=== PATIENT | female | born 1985 | race Caucasian/White ===

== ENCOUNTER 2020-04-14 16:28 | Inpatient (IN) | payer OTHER, MEDICAID ==
[~2020-04-14] VITALS: Ht 167.6 cm; Wt 65.8 kg
[2020-04-14 17:27] LABS: BASOPHILS % (AUTO) 1.1 % (0.0-2.0); EOSINOPHILS % (AUTO) 0.3 % (1.0-6.0); HEMATOCRIT 37.1 % (36-46); HEMOGLOBIN 12.7 g/dL (12.0-16.0); LYMPHOCYTES # (AUTO) 2.6 K/uL (1.0-4.8); LYMPHOCYTES % (AUTO) 20.1 % (22.0-44.0); MEAN CORPUSCULAR HEMOGLOBIN 31.5 pg (26.0-34.0); MEAN CORPUSCULAR HGB CONC 34.3 G/dL (31.0-37.0); MEAN CORPUSCULAR VOLUME 92 fL (80-100); MONOCYTES # (AUTO) 0.6 K/uL (0.1-1.0); MONOCYTES % (AUTO) 4.4 % (2.0-9.0); NEUTROPHILS # (AUTO) 9.5 K/uL (1.8-7.7); NEUTROPHILS % (AUTO) 74.1 % (40.0-70.0); PLATELET COUNT (AUTO) 447 K/uL (150-450); RED BLOOD CELL COUNT(AUTO) 4.05 MIL/uL (4.00-5.20); RED CELL DISTRIBUTION WIDTH 15.6 % (11.5-14.5)
[2020-04-14 17:40] LABS: ANION GAP 13 mmol/L (8-16); CALCIUM, TOTAL 8.6 mg/dL (8.8-10.5); CARBON DIOXIDE 23 mmol/L (22-29); CHLORIDE 102 mmol/L (98-107); CREATININE 0.95 mg/dL (0.60-1.30); GLOMERULAR FILTR. RATE CALC > 60 mL/min (>60); GLUCOSE,RANDOM 106 mg/dL (70-110); POTASSIUM 3.8 mmol/L (3.5-5.1); SODIUM SERUM 138 mmol/L (136-145); UREA NITROGEN, BLOOD 18 mg/dL (7-18)
[2020-04-14 17:52] LABS: ALANINE AMINOTRANSFERASE 33 U/L (12-78); ALBUMIN 3.9 g/dL (3.4-5.0); ALKALINE PHOSPHATASE 53 U/L (46-116); ASPARTATE AMINOTRANSFERASE 34 U/L (15-37); BILIRUBIN,TOTAL 0.2 mg/dL (0.1-1.0); HCG,QUANTITATIVE < 1 mIU/mL (0-6); TOTAL PROTEIN, SERUM 7.6 g/dL (6.4-8.2)
[2020-04-14] MEDS ORDERED: HYDR50CA9 PO (18:04)
[2020-04-14] MEDS ORDERED: NAPR-1025 PO (18:04)
[2020-04-14] MEDS ORDERED: FOLI-130 PO (18:04)
[2020-04-14] MEDS ORDERED: PRAZ1 PO (18:04)
[2020-04-14] MEDS ORDERED: GABA-1181 PO (18:04)
[2020-04-14 18:44] LABS: AMPHET/METH SCREEN,URINE NEGATIVE (NEGATIVE); BARBITURATE SCREEN, URINE NEGATIVE (NEGATIVE); BENZODIAZEPINES SCREEN,URINE NEGATIVE (NEGATIVE); CANNABINOID SCREEN,URINE NEGATIVE (NEGATIVE); COCAINE SCREEN,URINE NEGATIVE (NEGATIVE); METHADONE SCREEN, URINE NEGATIVE (NEGATIVE); OPIATE SCREEN,URINE NEGATIVE (NEGATIVE); PHENCYCLIDINE SCREEN,URINE NEGATIVE (NEGATIVE)
[2020-04-14] MEDS ORDERED: LORazepam 1 MG TABLET PO ONE (20:15)
[2020-04-14] MEDS ORDERED: ONDANSETRON HCL 4 MG TABLET PO ONE (23:45)
[2020-04-15 01:05] VITALS: BP 139/88
[2020-04-15] MEDS: ZOLPIDEM TARTRATE 10 MG TABLET PO PRN ×2 (01:25→20:09)
[2020-04-15] MEDS: LORazepam 2 MG TABLET PO PRN ×2 (01:25→08:31)
[2020-04-15 07:41] LABS: CHOL/HDL RATIO 2.7 (3.9-5.7)
[2020-04-15] MEDS: HALOPERIDOL 5 MG TABLET PO PRN (08:31)
[2020-04-15 08:58] VITALS: BP 102/62
[2020-04-15] MEDS ORDERED: PETROLATUM,WHITE 28 GM JELLY TP PRN (09:15)
[2020-04-15] MEDS ORDERED: MAG HYDROX/AL HYDROX/SIMETH ES 30 ML SUSPENSION UDCUP PO PRN (09:15)
[2020-04-15] MEDS ORDERED: DOCUSATE SODIUM 100 MG CAPSULE PO PRN (09:15)
[2020-04-15] MEDS ORDERED: NICOTINE 14 MG/24 HOUR PATCH TD PRN (09:15)
[2020-04-15] MEDS ORDERED: CloNIDine HCL 0.1 MG TABLET PO PRN (09:15)
[2020-04-15] MEDS ORDERED: ALBUTEROL SULFATE HFA 90 MCG/PUFF 8 GM INHALER IH PRN (09:15)
[2020-04-15] MEDS ORDERED: LOPERAMIDE HCL 2 MG CAPSULE PO PRN (09:15)
[2020-04-15] MEDS ORDERED: MAGNESIUM HYDROXIDE SUSPENSION 30 ML UDCUP PO PRN (09:15)
[2020-04-15] MEDS ORDERED: GuaiFENesin/D-METHORPHAN [SUGAR-FREE] 200-20MG/10 ML SYRUP UDCUP PO PRN (09:15)
[2020-04-15] MEDS ORDERED: ACETAMINOPHEN 325 MG TABLET PO PRN (09:15)
[2020-04-15] MEDS ORDERED: IBUPROFEN 400 MG TABLET PO PRN (09:15)
[2020-04-15] MEDS ORDERED: ONDANSETRON HCL 4 MG TABLET PO PRN (09:15)
[2020-04-15 16:00] VITALS: BP 130/87
[2020-04-15] MEDS: GABAPENTIN 300 MG CAPSULE PO SCH (16:17)
[2020-04-15] MEDS: TraZODone HCL 50 MG TABLET PO SCH (20:07)
[2020-04-15] MEDS: PRAZOSIN HCL 1 MG CAPSULE PO SCH (20:07)
[2020-04-16 00:01] VITALS: BP 120/75
[2020-04-16] MEDS: LORazepam 2 MG TABLET PO PRN ×4 (00:06→15:54)
[2020-04-16 08:00] VITALS: BP 144/95
[2020-04-16] MEDS: FOLIC ACID 1 MG TABLET PO SCH (09:18)
[2020-04-16] MEDS: GABAPENTIN 300 MG CAPSULE PO SCH ×3 (09:19→16:18)
[2020-04-16] MEDS: HydrOXYzine PAMOATE 50 MG CAPSULE PO SCH (09:19)
[2020-04-16] MEDS: HALOPERIDOL 5 MG TABLET PO PRN (15:54)
[2020-04-16 16:27] VITALS: BP 147/90
[2020-04-16] MEDS: TraZODone HCL 50 MG TABLET PO SCH (20:24)
[2020-04-16] MEDS: PRAZOSIN HCL 1 MG CAPSULE PO SCH (20:24)
[2020-04-16] MEDS: ZOLPIDEM TARTRATE 10 MG TABLET PO PRN (20:25)
[2020-04-17 00:15] VITALS: BP 100/60
[2020-04-17] MEDS: LORazepam 2 MG TABLET PO PRN (00:22)
[2020-04-17] MEDS: HALOPERIDOL 5 MG TABLET PO PRN (02:15)
[2020-04-17 04:13] VITALS: BP 111/79
[2020-04-17 08:00] VITALS: BP 112/68
[2020-04-17] MEDS: HydrOXYzine PAMOATE 50 MG CAPSULE PO SCH (09:06)
[2020-04-17] MEDS: FOLIC ACID 1 MG TABLET PO SCH (09:06)
[2020-04-17] MEDS: GABAPENTIN 300 MG CAPSULE PO SCH ×2 (09:06→13:39)
[2020-04-17] MEDS ORDERED: PRAZ1 PO (10:28)
[2020-04-17] MEDS ORDERED: TRAZ-252 PO (10:29)
== END 2020-04-17 15:09 | disposition home or self-care (01) | DRG 885 ==
LOC: EMS 16:28 → 3EI 20:12
DX: F31.4 Bipolar disorder, current episode depressed, severe, without psychotic features (principal); R45.851 Suicidal ideations; F43.12 Post-traumatic stress disorder, chronic; K29.20 Alcoholic gastritis without bleeding; I49.8 Other specified cardiac arrhythmias; F10.20 Alcohol dependence, uncomplicated; E78.5 Hyperlipidemia, unspecified; D72.829 Elevated white blood cell count, unspecified; Z79.899 Other long term (current) drug therapy; Z91.5 Personal history of self-harm; Z71.41 Alcohol abuse counseling and surveillance of alcoholic
CPT/HCPCS: 87081; 93005; G0480; Q0162